=== PATIENT | female | born 1995 | race Caucasian/White ===

== ENCOUNTER 2016-11-23 19:35 | Emergency (ER) | payer SELFPAY ==
[~2016-11-23] VITALS: Ht 170.2 cm; Wt 99.8 kg
[~2016-11-23 19:35] MED LIST: DEPO-PROVE150 MG/1 M IM; NORCO 5-325 TA1 EACH PO; PROZAC20 MG PO
[2016-11-23] MEDS ORDERED: BACTRIM DS TAB1 EACH PO (20:37)
[2016-11-23] MEDS ORDERED: CEPHALEXIN500 MG PO (20:37)
== END 2016-11-23 20:45 | disposition home or self-care (01) ==
LOC: ED 19:35
DX: L03.012 Cellulitis of left finger (principal); F17.200 Nicotine dependence, unspecified, uncomplicated; Z90.49 Acquired absence of other specified parts of digestive tract
CPT/HCPCS: 99283

== ENCOUNTER 2018-05-10 10:31 | Emergency (ER) | payer SELFPAY ==
[~2018-05-10] VITALS: Ht 170.2 cm; Wt 105.2 kg
[~2018-05-10 10:31] MED LIST changes: +BACTRIM DS TAB1 EACH PO; +CEPHALEXIN500 MG PO
[2018-05-10] MEDS ORDERED: AUGMENTIN 875-1 EACH PO (20:02)
== END 2018-05-10 12:38 | disposition left against medical advice (07) ==
LOC: ED 10:31
DX: R05 Cough (principal); R09.81 Nasal congestion; R10.9 Unspecified abdominal pain; R11.0 Nausea; R51 Headache

== ENCOUNTER 2018-05-10 18:27 | Emergency (ER) | payer SELFPAY ==
[~2018-05-10] VITALS: Ht 170.2 cm; Wt 105.2 kg
--- OUTSIDE RECORDS SUMMARY | 2018-05-10 18:30 | XMS ---
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 Lisbeth has no Care Guidelines for this patient. Ricardo [facility] ([facility] MO[facility] NOTE: Visits indicate total known visits. ED/[facility] VISIT TRACKING (12 MO.) 05/10/2018 18:[address] [facility] [place] TYPE: Emergency COMPLAINT: - CHEST PAIN/HEAD PAIN/VISION PROBLEM 05/10/2018 10:32 [facility] [place] TYPE: Emergency COMPLAINT: - FLU SYMPTOMS INPATIENT VISIT TRACKING (12 MO.) No inpatient visits to display in this time frame [id number]
[2018-05-10] MEDS ORDERED: AUGMENTIN 875-1 EACH PO (20:02)
== END 2018-05-10 20:11 | disposition home or self-care (01) ==
LOC: ED 18:27
DX: J32.9 Chronic sinusitis, unspecified (principal); F17.200 Nicotine dependence, unspecified, uncomplicated
CPT/HCPCS: 99283

== ENCOUNTER 2019-01-22 12:17 | Emergency (ER) | payer SELFPAY ==
[~2019-01-22] VITALS: Ht 170.2 cm; Wt 102.1 kg
[~2019-01-22 12:17] MED LIST changes: +AUGMENTIN 875-1 EACH PO
--- OUTSIDE RECORDS SUMMARY | 2019-01-22 12:20 | XMS ---
PreManage Notification: JESÚS ALVARENGA Security Car Dispatcher Events 1 event(s) in the past 18 months Most recent security events: Elopement at [facility] 05/10/2018 10:32 - Other Details: TATA RODRIGUEZ CREATED- PATIENT DID RETURN CRITERIA MET - [facility] - Has Care Guidelines CARE PROVIDERS MICHELLE MYERS Nurse Practitioner: 05/11/2018-Current PHONE: Unknown Lisbeth has no Care Guidelines for this patient. Care History Medical/Surgical 05/11/2018 [facility] - Patient is currently established with [facility]. If patient is seen in the ED during business hours. Please contact CHWs at [facility]. Care Recommendation: This patient has had 5 or more Emergency Department visits in the last 12 months.\T\nbsp; Patient requires education on the scope and purpose of the ED as an acute care provider not a Primary Care Provider and should not be utilized for chronic conditions.\T\nbsp; These are guidelines and the provider should exercise clinical judgment when providing care. E.D. VISIT COUNT (12 MO.) 3 [facility]IE[facility] Boucher ArmidaDarryl TOTAL 3 NOTE: Visits indicate total known visits. ED/UCC VISIT TRACKING (12 MO.) 01/22/2019 12:18 [facility] [place] TYPE: Emergency COMPLAINT: - FLU SYMPTOMS 05/10/2018 18:28 [facility] [place] TYPE: Emergency COMPLAINT: - CHEST PAIN/HEAD PAIN/VISION PROBLEM DIAGNOSES: - Cough - Chronic sinusitis, unspecified - Nicotine dependence, unspecified, uncomplicated 05/10/2018 10:32 [facility] [place] TYPE: Emergency COMPLAINT: - FLU SYMPTOMS DIAGNOSES: - Unspecified abdominal pain - Nausea - Cough - Nasal congestion - Headache INPATIENT VISIT TRACKING (12 MO.) No inpatient visits to display in this time frame [email or web address]
[2019-01-22] MEDS ORDERED: ONDANSETRON ODT8 MG PO (14:45)
== END 2019-01-22 14:55 | disposition home or self-care (01) ==
LOC: ED 12:17
DX: J11.1 Influenza due to unidentified influenza virus with other respiratory manifestations (principal); J40 Bronchitis, not specified as acute or chronic; F17.200 Nicotine dependence, unspecified, uncomplicated
CPT/HCPCS: 71046; 80053; 85025; 87502; 96374; 96375; 99283-25; J1885; J2405; J7030

== ENCOUNTER 2019-07-13 16:06 | Emergency (ER) | payer OTHER ==
[~2019-07-13] VITALS: Ht 170.2 cm; Wt 107.5 kg
[~2019-07-13 16:06] MED LIST changes: +ONDANSETRON ODT8 MG PO
--- OUTSIDE RECORDS SUMMARY | 2019-07-13 16:10 | XMS ---
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 - Has Care Guidelines CARE PROVIDERS MICHELLE MYERS Nurse Practitioner: Family 05/11/2018-Current PHONE: [phone] Lisbeth has no Care Guidelines for this patient. Care History Medical/Surgical 01/24/2019 [facility] Patient needs to re-establish care with PCP Michelle Myers (last seen on 2015) or other PCP. 05/11/2018 [facility] - Patient is currently established with [facility]. If patient is seen in the ED during business hours. Please contact CHWs at [facility]. Care Recommendation: If this patient has had 5 or more Emergency Department visits in the last 12 months.\T\nbsp; Patient will require education on the scope and purpose of the ED as an acute care provider not a Primary Care Provider and should not be utilized for chronic conditions.\T\nbsp; These are guidelines and the provider should exercise clinical judgment when providing care. E.D. VISIT COUNT (12 MO.) 2 DIEGO Mark TOTAL 2 NOTE: Visits indicate total known visits. ED/UCC VISIT TRACKING (12 MO.) 07/13/2019 16:07 [facility] [place] TYPE: Emergency COMPLAINT: - R SIDE MID/LOW BACK PAIN 01/22/2019 12:18 [facility] [place] TYPE: Emergency COMPLAINT: - FLU SYMPTOMS DIAGNOSES: - Nicotine dependence, unspecified, uncomplicated - Bronchitis, not specified as acute or chronic - Fever, unspecified - Influenza due to unidentified influenza virus with other resp INPATIENT VISIT TRACKING (12 MO.) No inpatient visits to display in this time frame [email or web address]
== END 2019-07-13 19:04 | disposition home or self-care (01) ==
LOC: ED 16:06
DX: O99.89 Other specified diseases and conditions complicating pregnancy, childbirth and the puerperium (principal); N13.4 Hydroureter; Z3A.18 18 weeks gestation of pregnancy; O99.332 Smoking (tobacco) complicating pregnancy, second trimester
CPT/HCPCS: 76775; 81001; 99284-25; A9270

== ENCOUNTER 2019-12-06 10:59 | Inpatient (IN) | payer OTHER ==
[~2019-12-06] VITALS: Ht 170.2 cm; Wt 111.1 kg
--- NOTE | 2019-12-08 07:31 | PR ---
[facility] [address] [place], [place] [address] Signed PP Progress Notes Datetime Report Generated by CPN: 12/08/2019 07:30 SUBJECTIVE: [id number] Pain: Within Normal Limits Nausea/Vomiting: Denies Flatus: Yes Bowel Movement: Yes Vital Signs: [id number] Vital Signs: Reviewed; Within Normal Limits EXAM: Ongoing Cardiovascular: Normal Respiratory: Normal Abdomen/Uterus: Normal Lochia: Normal Vulva/Perineum: Normal Extremities: Normal Exam Comments: Appears comfortable Fundus firm below U Trace bilateral lower extremity edema IMPRESSION/PLAN/PROCEDURES: [id number] Impression: Normal Progression Plan: Discharge Progress Notes: PPD#2 s/p MIOL for gHTN, normotensive since delivery Progressing well Signing Physician: Judy Major DO Copies: ~ *Electronically Signed* 12/08/19 0730 JUDY MAJOR DO PATIENT NAME: JESÚS ALVARENGA PROGRESS NOTE DATE OF : [birth year] PHYSICIAN: JUDY MAJOR DO RPT #: [id number] REPORT IS CONFIDENTIAL AND NOT TO BE RELEASED WITHOUT AUTHORIZATION
== END 2019-12-08 09:55 | disposition home or self-care (01) | DRG 807 ==
LOC: FBC 10:59
PROVIDERS: ADMIT Obstetrics & Gynecology; ATTEND Obstetrics & Gynecology
PROC: 10E0XZZ Delivery of Products of Conception, External Approach (ICD-10-PCS; principal; 2019-12-06)
PROC: 0KQM0ZZ Repair Perineum Muscle, Open Approach (ICD-10-PCS; 2019-12-06)
PROC: 0UQMXZZ Repair Vulva, External Approach (ICD-10-PCS; 2019-12-06)
PROC: 10H07YZ Insertion of Other Device into Products of Conception, Via Natural or Artificial Opening (ICD-10-PCS; 2019-12-06)
PROC: 10907ZC Drainage of Amniotic Fluid, Therapeutic from Products of Conception, Via Natural or Artificial Opening (ICD-10-PCS; 2019-12-06)
PROC: 00HU33Z Insertion of Infusion Device into Spinal Canal, Percutaneous Approach (ICD-10-PCS; 2019-12-06)
PROC: 3E0R3BZ Introduction of Anesthetic Agent into Spinal Canal, Percutaneous Approach (ICD-10-PCS; 2019-12-06)
DX: O13.4 Gestational [pregnancy-induced] hypertension without significant proteinuria, complicating childbirth (principal); Z37.0 Single live birth; Z3A.39 39 weeks gestation of pregnancy; O99.334 Smoking (tobacco) complicating childbirth; F17.210 Nicotine dependence, cigarettes, uncomplicated; O99.824 Streptococcus B carrier state complicating childbirth; O70.1 Second degree perineal laceration during delivery; O71.82 Other specified trauma to perineum and vulva
CPT/HCPCS: 01960; 36415; 82565; 82570; 84156; 84450; 84520; 84550; 85025; 85027; A9270; J2405; J2540; J2590; J2795; J3010; J7121

== ENCOUNTER 2020-06-03 21:20 | Emergency (ER) | payer OTHER ==
[~2020-06-03] VITALS: Ht 172.7 cm; Wt 104.3 kg
--- OUTSIDE RECORDS SUMMARY | 2020-06-03 21:22 | XMS ---
PreManage Notification: JESÚS ALVARENGA Security Supervisor Cutting And Boning Events No recent Security Events currently on file CRITERIA MET - [facility] - Has Care Guidelines CARE PROVIDERS HANDY LASSITER Education Sales Consultant 07/14/2019-Current PHONE: Unknown OLIVIER MYRES Nurse Practitioner: Family 05/11/2018-Current PHONE: [phone] Lisbeth has no Care Guidelines for this patient. Care History Medical/Surgical 07/14/2019 [facility] - PATIENT HAS AN APT WITH DR ANTON- 08/09/2019. 01/24/2019 [facility] Patient needs to re-establish care with PCP Olivier Myers (last seen on 2015) or other PCP. 05/11/2018 [facility] - Patient is currently established with [facility]. If patient is seen in the ED during business hours. Please contact CHWs at [facility]. Care Recommendation: If this patient has had 5 or more Emergency Department visits in the last 12 months.\T\nbsp; Patient will require education on the scope and purpose of the ED as an acute care provider not a Primary Care Provider and should not be utilized for chronic conditions.\T\nbsp; These are guidelines and the provider should exercise clinical judgment when providing care. EDarrylD. VISIT COUNT (12 MO.) 2 DIEGO Mark TOTAL 2 NOTE: Visits indicate total known visits. ED/UCC VISIT TRACKING (12 MO.) 06/03/2020 21:21 [facility] [place] TYPE: Emergency COMPLAINT: - ABDOMINAL CRAMPING, FLANK PAIN 07/13/2019 16:07 [facility] [place] TYPE: Emergency COMPLAINT: - R SIDE MID/LOW BACK PAIN DIAGNOSES: - Other specified diseases and conditions complicating , childbirth and the puerperium - Hydroureter - Smoking (tobacco) complicating , second trimester - 18 weeks gestation of INPATIENT VISIT TRACKING (12 MO.) 12/06/2019 11:12 [facility] [place] TYPE: [facility] COMPLAINT: - INDUCTION DIAGNOSES: - Streptococcus B carrier state complicating childbirth - Other specified trauma to perineum and vulva - Single live - Gestational [-induced] hypertension without significant proteinuria, complicating childbirth - Gestational [-induced] hypertension without significant proteinuria, complicating childbirth - Smoking (tobacco) complicating childbirth - Second degree perineal laceration during delivery - Nicotine dependence, cigarettes, uncomplicated - Gestational [-induced] hypertension without significant proteinuria, third trimester - 39 weeks gestation of - Smoking (tobacco) complicating childbirth - Streptococcus B carrier state complicating childbirth - Second degree perineal laceration during delivery - Nicotine dependence, cigarettes, uncomplicated - 39 weeks gestation of - Single live - Other specified trauma to perineum and vulva [email or web address]
[2020-06-03] MEDS ORDERED: CLONIDINE HCL0.2 MG PO (21:36)
[2020-06-03] MEDS ORDERED: ALPRAZOLAM0.25 MG PO (21:36)
[2020-06-03] MEDS ORDERED: FLUOXETINE HCL20 MG PO (21:36)
[2020-06-04] MEDS ORDERED: ZOFRAN4 MG PO (00:17)
[2020-06-04] MEDS ORDERED: HYDROCODON-ACE1 EA10 PO (00:17)
[2020-06-04] MEDS ORDERED: HYDROMORPHONE HC2 MG PO (11:56)
[2020-06-04] MEDS ORDERED: FLOMAX0.4 MG PO (12:36)
== END 2020-06-04 00:33 | disposition home or self-care (01) ==
LOC: ED 21:20
DX: N13.2 Hydronephrosis with renal and ureteral calculous obstruction (principal); F17.200 Nicotine dependence, unspecified, uncomplicated; Z79.899 Other long term (current) drug therapy
CPT/HCPCS: 74176; 80053; 81001; 83690; 84703; 85025; 96374; 99284-25; J1885

== ENCOUNTER 2020-06-04 10:39 | Emergency (ER) | payer OTHER ==
[~2020-06-04] VITALS: Ht 172.7 cm; Wt 104.3 kg
[~2020-06-04 10:39] MED LIST changes: +ALPRAZOLAM0.25 MG PO; +CLONIDINE HCL0.2 MG PO; +FLUOXETINE HCL20 MG PO; +HYDROCODON-ACE1 EA10 PO; +ZOFRAN4 MG PO
--- OUTSIDE RECORDS SUMMARY | 2020-06-04 10:42 | XMS ---
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 Care History Medical/Surgical 07/14/2019 [facility] - PATIENT HAS AN APT WITH DR ANTON- 08/09/2019. 01/24/2019 [facility] Patient needs to re-establish care with PCP Olivier Myers (last seen on 2015) or other PCP. Ricardo VISIT COUNT (12 MO.) 3 [facility] TOTAL 3 NOTE: Visits indicate total known visits. ED/UCC VISIT TRACKING (12 MO.) [facility] COMPLAINT: - R SIDE ABD PAIN 06/03/2020 21:21 [facility] [place] TYPE: Emergency [...] MO.) 12/06/2019 11:12 [facility] [place] TYPE: [facility] COMPLAINT: - INDUCTION DIAGNOSES: - Streptococcus B [...] Other specified trauma to perineum and vulva [email or web address]
[2020-06-04] MEDS ORDERED: HYDROMORPHONE HC2 MG PO (11:56)
[2020-06-04] MEDS ORDERED: FLOMAX0.4 MG PO (12:36)
== END 2020-06-04 13:49 | disposition home or self-care (01) ==
LOC: ED 10:39
DX: N20.1 Calculus of ureter (principal); F17.200 Nicotine dependence, unspecified, uncomplicated; Z79.899 Other long term (current) drug therapy
CPT/HCPCS: 96374; 96375; 99283-25; J1170; J1885

== ENCOUNTER 2020-06-07 05:40 | Day surgery (SDC) | payer OTHER ==
[~2020-06-07] VITALS: Ht 172.7 cm; Wt 103.6 kg
--- NOTE | ~2020-06-07 | OR ---
[facility] [address], [place] [address] Draft DATE OF OPERATION: 06/07/2020 SURGEON: Chato Cantu MD PREOPERATIVE DIAGNOSIS: Right ureterolithiasis. POSTOPERATIVE DIAGNOSES: 1. Right ureterolithiasis. 2. 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 NAMES OF PROCEDURES: 1. Diagnostic cystoscopy with right retrograde pyelogram. 2. Balloon dilation of distal right ureter under fluoroscopic guidance. 3. Right semi-rigid ureteroscopy with laser lithotripsy and basket extraction of stones. 4. Insertion of a 6 x 26 cm double-J ureteral stent into the right ureter. INDICATIONS FOR PROCEDURE: Ms. Alvarenga is a very pleasant 25-year-old female with no previous history of nephrolithiasis, who presented to my clinic two days ago with a 1 to 2 week history of severe right-sided flank pain, nausea, and vomiting. She presented to the emergency department where she underwent a CT scan, which revealed a partially obstructing 7 mm distal right ureteral calculus. Urinalysis at that time revealed no evidence of urinary tract infection and her blood work was within normal limits. She was sent home to attempt a trial of passage, which failed. She is taking p.o. Dilaudid for pain because other narcotics cause severe nausea and vomiting. After discussion of the risks and benefits of the procedure, the patient has elected to undergo extraction of her 7 mm right distal ureteral calculus via ureteroscopy and laser lithotripsy, etc. OPERATIVE FINDINGS: 1. On cystoscopy, there was no evidence of any suspicious masses, lesions, or stones. Bilateral ureteral orifices are in their normal anatomic location. 2. Diagnostic ureteroscopy revealed a mild stricture located in the distal right ureter, approximately 2 cm superior to the right ureteral orifice. My initial attempts to pass a semi-rigid ureteroscope failed due to the presence of the stricture. 3. Right retrograde pyelogram was performed which revealed a filling defect at the distal right ureter, along with narrowing around 2 cm above the right ureteral orifice. 4. The distal right ureter was dilated using a UroMax balloon dilator. The distal stricture was dilated for approximately 2 minutes at a total pressure of 10 ATMs. The repeat ureteroscopy revealed that the balloon dilation was quite successful and I was PATIENT NAME: JESÚS ALVRAENGA OPERATIVE REPORT DATE OF : [birth year] REPORT #: [id number] PHYSICIAN: CHATO CANTU MD PCP: RIVKA ALVARENGA MD REPORT IS CONFIDENTIAL AND NOT TO BE RELEASED WITHOUT AUTHORIZATION [facility] [address], [place] [address] Draft able to easily pass the semi-rigid ureteroscope to the level of the obstructing 7 mm stone. 5. The 7 mm distal right ureteral calculus was fragmented using a holmium laser at 8 and 0.8 settings using a 270 micron fiber. The stone fragmented quite easily to small fragments, most of which passed down the remainder of the ureter and into the bladder. A couple of larger fragments did require extraction using a Zero tip basket. At the end of the procedure, a 6 x 26 cm double-J ureteral stent was inserted into the patient's bladder under direct visualization. DRAINS: A 6 x 26 cm double-J ureteral stent inserted into the right ureter. ESTIMATED BLOOD LOSS: None. COMPLICATIONS: None. DESCRIPTION OF PROCEDURE: After informed consent was obtained, the patient was taken back to the operating room. [facility] operating room table, where general anesthesia was induced. She was placed in the dorsal lithotomy position and her genitalia were prepped and draped in the standard sterile fashion. Using a 30-degree lens on a 22.5-Syrian introducer, a rigid cystoscope was inserted through the urethra and into her bladder under direct visualization. Panendoscopic views of the bladder were then obtained. Please see above findings. Attention was turned to the right ureteral orifice. A cone-tipped catheter was advanced through the bladder into the right ureteral orifice and a right retrograde pyelogram was performed. Please see above findings. A 0.035 Sensor wire was then inserted into the right ureter using a cystoscope in the usual fashion. Fluoroscopy confirmed adequate placement of the wire. I then attempted to pass a semi-rigid ureteroscope alongside the wire and into the right ureteral orifice. I was able to get the camera into the right ureteral orifice, but I could not pass what appeared to be a mild distal ureteral stricture. At that time, I decided to remove the ureteroscope and attempt balloon dilation of the distal ureter. Over the Sensor wire, a UroMax balloon was passed into the distal ureter under fluoroscopic guidance. The balloon was filled with contrast to a pressure of 10 atmospheres for a total of 2 minutes. The balloon was then deflated and the device was removed, leaving the Sensor wire behind. I then attempted another ureteroscopy using a semi-rigid ureteroscope. At this time, I was successful in passing this area of stricture and heading into the proximal portion of the distal right ureter. I encountered the stone there and at that time, the stone was fragmented using a holmium laser at 8 and 0.8 settings. Please see above findings. A good deal of stone fragments PATIENT NAME: JESÚS ALVARENGA OPERATIVE REPORT DATE OF : [birth year] REPORT #: [id number] PHYSICIAN: CHATO CANTU MD PCP: RIVKA ALVARENGA MD REPORT IS CONFIDENTIAL AND NOT TO BE RELEASED WITHOUT AUTHORIZATION [facility] [address], [place] [address] Draft fell out of the ureter and into the patient's bladder. A basket was used to extract a couple of straggling stones present within the distal right ureter. Once I was satisfied that all of these stones had been successfully removed from the right ureter, I removed the semi-rigid ureteroscope from the patient's ureter and bladder. With the remaining Sensor wire already in place, I performed a repeat retrograde pyelogram using a cone-tipped catheter, which confirmed a completely patent right ureter. A 6 x 26 stent cm double-J ureteral stent was then passed into the right collecting system over the indwelling Sensor wire under direct visualization. The stent was passed without any difficulty. Once the wire was pulled, an adequate proximal coil was seen within the right renal pelvis along with an adequate distal coil within the bladder on cystoscopy. The patient's bladder was then drained and the stone fragments were extracted from the patient's bladder using the cystoscope. The procedure was then terminated. The patient tolerated the procedure well without any complication. She will now be transferred to the post anesthesia care unit in stable condition. DISPOSITION: I discussed the details of today's procedure with the patient's and answered all of his questions. She will be sent home today with additional Dilaudid, oral Dilaudid 2 mg p.o. q.6 hours p.r.n. pain, dispense #20, along with Cipro 1 tablet p.o. b.i.d. for a total of 7 days. I notified the patient's that there was some small amount of stricture there in the distal right ureter that require dilation. The dilation was performed without any difficulty. I was successfully able to extract the entire stone burden from the ureter without difficulty. She will be scheduled to return to clinic in two weeks to undergo cystoscopy with right ureteral stent extraction on June 21, 2020. At that time, we will discuss the results of her stone analysis. MD EJ Gonzalez/MODL /[id number] Copies: ~ PATIENT NAME: JESÚS ALVARENGA OPERATIVE REPORT DATE OF : [birth year] REPORT #: [id number] PHYSICIAN: CHATO CANTU MD PCP: RIVKA ALVARENGA MD REPORT IS CONFIDENTIAL AND NOT TO BE RELEASED WITHOUT AUTHORIZATION
[~2020-06-07 05:40] MED LIST changes: +FLOMAX0.4 MG PO; +HYDROMORPHONE HC2 MG PO
--- NOTE | 2020-06-07 08:48 | NUR ---
06/07/20 0848 Meredith Pagan 0837 PT TO PACU WITH ORAL AIRWAY IN PLACE O2 AT 6L VIA MASK BUILDING CARPENTER REMOVED ORAL AIRWAY ON ADMIT TO PACU.
--- NOTE | 2020-06-07 09:27 | NUR ---
LE 0900: PT RETURNS TO UNIT FROM PACU VIA STRETCHER. BEDSIDE REPORT RECEIVED AND CARE ASSUMED BY THIS RN. PT ALERT AND ORIENTED. DENIES NAUSEA, VSS. REPORTS URGENCY TO VOID. DANGLES AT THE BEDSIDE AND DENIES DIZZINESS AND SOB. PIVOTS TO BEDSIDE COMMODE WITH STANDBY ASSIST FROM THIS RN. SUCCESSFUL POST OP VOID. PIVOTS BACK TO BED. IMELDA WELL. SNACKS AND ICE WATER PROVIDED. DENIES FURTHER NEEDS AND REQUESTS. CALL LIGHT WITHIN REACH
--- NOTE | 2020-06-07 10:04 | NUR ---
PT ALERT AND ORIENTED ON CELL PHONE. VSS, PT CONTS TO DENY PAIN AND NAUSE. IV D/C'D WITH CATH TIP INTACT AND PRESSURE APPLIED TO SITE. SCDS REMOVED AND PT TO PREPARE FOR D/C.
--- NOTE | 2020-06-07 10:30 | NUR ---
1025: D/C INSTRUCTIONS PROVIDED AND DISCUSSED ORDERED. PT VOICES UNDERSTANDING AND DENIES QUESTIONS OR CONCERNS AT THIS TIME. WHEELED OFF OF UNIT IN W/C. TRANSFERS INTO VEHICLE INDEPENDENTLY. RESP EVEN AND UNLABORED. NO PHYSICAL S/S OF DISTRESS AT THIS TIME
== END 2020-06-07 10:25 | disposition home or self-care (01) ==
LOC: OPS 05:40 → DS 05:40 → OPS 06:45
PROVIDERS: ATTEND Urology
PROC: 0T768DZ Dilation of Right Ureter with Intraluminal Device, Via Natural or Artificial Opening Endoscopic (ICD-10-PCS; 2020-06-07)
PROC: 0T768ZZ Dilation of Right Ureter, Via Natural or Artificial Opening Endoscopic (ICD-10-PCS; 2020-06-07)
PROC: 0TC68ZZ Extirpation of Matter from Right Ureter, Via Natural or Artificial Opening Endoscopic (ICD-10-PCS; principal; 2020-06-07 06:45)
DX: N20.1 Calculus of ureter (principal); F17.210 Nicotine dependence, cigarettes, uncomplicated; N39.0 Urinary tract infection, site not specified; N13.5 Crossing vessel and stricture of ureter without hydronephrosis; Z88.5 Allergy status to narcotic agent
CPT/HCPCS: 74018; 74420; 82365; 84703; C1769; C2617; J0690; J1100; J1200; J1885; J2001; J2250; J2405; J2704; J3010; J7121; Q9967

== ENCOUNTER 2020-11-24 06:52 | Emergency (ER) | payer OTHER ==
[~2020-11-24] VITALS: Ht 172.7 cm; Wt 103.4 kg
--- OUTSIDE RECORDS SUMMARY | 2020-11-24 06:54 | XMS ---
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 Care History Medical/Surgical 06/05/2020 [facility] - PATIENT HAS A URETEROSCOPY SCHEDULED WITH UROLOGIST DR CANTU 06/07/2020. 07/14/2019 [facility] - PATIENT HAS AN APT WITH DR ANTON- 08/09/2019. 01/24/2019 [facility] Patient needs to re-establish care with PCP Olivier Myers (last seen on 2015) or other PCP. Ricardo VISIT COUNT (12 MO.) 3 [facility] TOTAL 3 NOTE: Visits indicate total known visits. ED/UCC VISIT TRACKING (12 MO.) [facility] COMPLAINT: - DENTAL PAIN 06/04/2020 10:40 [facility] [place] TYPE: Emergency COMPLAINT: - R SIDE ABD PAIN DIAGNOSES: - Other alf (current) drug therapy - Unspecified abdominal pain - Nicotine dependence, unspecified, uncomplicated - Calculus of ureter 06/03/2020 21:21 [facility] [place] TYPE: Emergency COMPLAINT: - ABDOMINAL CRAMPING, FLANK PAIN DIAGNOSES: - Other alf (current) drug therapy - Nicotine dependence, unspecified, uncomplicated - Hydronephrosis with renal and ureteral calculous obstruction - Generalized abdominal pain INPATIENT VISIT TRACKING (12 MO.) 12/06/2019 11:12 DIE[facility]ano [place] TYPE: [facility] COMPLAINT: - INDUCTION DIAGNOSES: - Streptococcus [...] Other specified trauma to perineum and vulva [email or web address]
[2020-11-24] MEDS ORDERED: ARIPIPRAZOLE2 MG PO (07:05)
[2020-11-24] MEDS ORDERED: HYDROCODON-ACE1 EA10 PO (07:05)
[2020-11-24] MEDS ORDERED: DILAUDID2 MG PO (07:58)
[2020-11-24] MEDS ORDERED: AMOXICILLIN500 MG PO (07:58)
== END 2020-11-24 08:15 | disposition home or self-care (01) ==
LOC: ED 06:52
DX: K08.89 Other specified disorders of teeth and supporting structures (principal); F17.200 Nicotine dependence, unspecified, uncomplicated; Z88.5 Allergy status to narcotic agent; Z79.899 Other long term (current) drug therapy
CPT/HCPCS: 99282

== ENCOUNTER 2021-10-11 19:58 | Inpatient (IN) | payer OTHER ==
[~2021-10-11] VITALS: Ht 172.7 cm; Wt 113.4 kg
[~2021-10-11 19:58] MED LIST changes: +AMOXICILLIN500 MG PO; +ARIPIPRAZOLE2 MG PO; +DILAUDID2 MG PO
--- NOTE | 2021-10-11 21:55 | NUR ---
COVID 19 SWAB DONE TO BOTH NARES AND SENT TO IN HOUSE LAB.
[2021-10-11] MEDS ORDERED: PRENATAL FORMU1 EAC3 PO (22:17)
[2021-10-11] MEDS ORDERED: IRON325 M1 PO (22:17)
[2021-10-11] MEDS ORDERED: LO-DOSE ASPIRIN81 MG PO (22:18)
--- NOTE | 2021-10-12 01:29 | PR ---
[facility] [address] [place], [place] [address] Signed Progress Notes IP Datetime Report Generated by NIKKI: 10/12/2021 01:29 PROGRESS NOTES: [id number] Impression: Normal Progression of Labor; Reassuring Heart Rate Procedures: Artificial ROM; Sterile Vag Exam Plan: Continue Present Management VITAL SIGNS: [id number] Vital Signs: Reviewed; Within Normal Limits EXAM: [id number] Dilatation: 5.0 Effacement: 80 Station: -2 Contractions: q 5 to 7 min MEMBRANES: [id number] Amniotic Fluid Color: Clear Comments: Comfortable after epidural. AROM of forebag should help with contractions. If not, will begin with low dose pitocin. FETUS A: [id number] FHR Baseline: 145 Variability: Moderate 6-25bpm Accelerations: 15X15 Decelerations: None FHR Category: Category I Presentation: Vertex Comments on Fetus A: no evidence metabolic acidosis FETUS B: [id number] Signing Physician: Linda Silvermna MD Copies: ~ *Electronically Signed* 10/12/21 0129 LINDA SILVERMAN MD PATIENT NAME: JESÚS ALVARENGA PROGRESS NOTE DATE OF : 95 PHYSICIAN: LINDA SILVERMAN MD RPT #: [id number] REPORT IS CONFIDENTIAL AND NOT TO BE RELEASED WITHOUT AUTHORIZATION
--- NOTE | 2021-10-12 04:46 | PR ---
[facility] [address] [place], [place] [address] Signed PP Progress Notes Datetime Report Generated by NIKKI: 10/12/2021 04:46 SUBJECTIVE: [id number] Vital Signs: [id number] EXAM: Ongoing Exam Comments: Fundus firm, sl tender at U-2 Small clot removed from uterus IMPRESSION/PLAN/PROCEDURES: [id number] Other Impression: pp bleeding, hx pp hemorrhage Other Plans: add po Cytotec, Lomotil, Zofran IV Progress Notes: Having some increased bleeding following delivery. She has previously received TXA and has had pitocin bolus and ongoing infusion of pit at 250 cc/hr. Small clot removed but pt with trickle of bleeding. Will add PO Cytotec, Lomotil, IV Zofran to see if this is helpful. Her BPs are sl elevated and am reluctant to use methergine. Hemabate will be next option for treatment. Signing Physician: Linda Silverman MD Copies: ~ *Electronically Signed* 10/12/21 0446 LINDA SILVERMAN MD PATIENT NAME: JESÚS ALVARENGA PROGRESS NOTE DATE OF : [birth year] PHYSICIAN: LINDA SILVERMAN MD RPT #: [id number] REPORT IS CONFIDENTIAL AND NOT TO BE RELEASED WITHOUT AUTHORIZATION
--- NOTE | 2021-10-13 09:28 | PR ---
[facility] [address], [place] [address] Signed PP Progress Notes Datetime Report Generated by NIKKI: 10/13/2021 09:28 SUBJECTIVE: [id number] Pain: Within Normal Limits Pain Comments: no dizziness when up and around Vital Signs: [id number] Vital Signs: Reviewed; Within Normal Limits EXAM: Ongoing Cardiovascular: Not Done Respiratory: Not Done Abdomen/Uterus: Abnormal Lochia: Normal Vulva/Perineum: Not Done Breasts: Not Done CVA Tenderness: Not Done Extremities: Normal Incision: Not Applicable Progress: Normal Exam Comments: Fundus firm, NT @ U-2 H/H 6.8/22.5, WBC 9, plat 250k IMPRESSION/PLAN/PROCEDURES: [id number] Impression: Normal Progression Other Impression: Anemia worsened with delivery Plan: Discharge Other Plans: add po Cytotec, Lomotil, Zofran IV Other Procedures: IV iron infusion Progress Notes: Feeling well and tolerating ambulation w/o difficulty despite anemia. I do not feel transfusion necessary as she is doing well but will give IV iron infusion today with repeat in 5 to 7 days. Signing Physician: Linda Silverman MD Copies: ~ *Electronically Signed* 10/13/21927 LINDA SILVERMAN MD PATIENT NAME: JESÚS ALVARENGA PROGRESS NOTE DATE OF : 89 PHYSICIAN: LINDA SILVERMAN MD RPT #: [id number] REPORT IS CONFIDENTIAL AND NOT TO BE RELEASED WITHOUT AUTHORIZATION
== END 2021-10-13 12:02 | disposition home or self-care (01) | DRG 806 ==
LOC: FBCO 19:58 → FBC 20:28
PROVIDERS: ADMIT Obstetrics & Gynecology; ATTEND Obstetrics & Gynecology
PROC: 10E0XZZ Delivery of Products of Conception, External Approach (ICD-10-PCS; principal; 2021-10-12)
PROC: 10907ZC Drainage of Amniotic Fluid, Therapeutic from Products of Conception, Via Natural or Artificial Opening (ICD-10-PCS; 2021-10-12)
PROC: 3E0R3BZ Introduction of Anesthetic Agent into Spinal Canal, Percutaneous Approach (ICD-10-PCS; 2021-10-12)
PROC: 00HU33Z Insertion of Infusion Device into Spinal Canal, Percutaneous Approach (ICD-10-PCS; 2021-10-12)
PROC: 3E033VJ Introduction of Other Hormone into Peripheral Vein, Percutaneous Approach (ICD-10-PCS; 2021-10-12)
PROC: 0KQM0ZZ Repair Perineum Muscle, Open Approach (ICD-10-PCS; 2021-10-12)
DX: O42.02 Full-term premature rupture of membranes, onset of labor within 24 hours of rupture (principal); O72.1 Other immediate postpartum hemorrhage; Z37.0 Single live birth; O13.4 Gestational [pregnancy-induced] hypertension without significant proteinuria, complicating childbirth; Z20.822 Contact with and (suspected) exposure to COVID-19; O76 Abnormality in fetal heart rate and rhythm complicating labor and delivery; O99.02 Anemia complicating childbirth; Z88.5 Allergy status to narcotic agent; O99.334 Smoking (tobacco) complicating childbirth; F17.210 Nicotine dependence, cigarettes, uncomplicated; Z3A.38 38 weeks gestation of pregnancy; O70.1 Second degree perineal laceration during delivery; O99.824 Streptococcus B carrier state complicating childbirth; Z79.899 Other long term (current) drug therapy; Z90.49 Acquired absence of other specified parts of digestive tract
CPT/HCPCS: 01960; 36415; 85025; 85027; 85060; 86850; 86900; 86901; 87502; A9270; C9803; J2001; J2405; J2540; J2590; J2795; J7121; Q0138; U0003

== ENCOUNTER 2021-10-19 13:53 | Emergency (ER) | payer OTHER ==
[~2021-10-19] VITALS: Ht 182.9 cm; Wt 103.8 kg
[~2021-10-19 13:53] MED LIST changes: +IRON325 M1 PO; +LO-DOSE ASPIRIN81 MG PO; +PRENATAL FORMU1 EAC3 PO
--- OUTSIDE RECORDS SUMMARY | 2021-10-19 13:56 | XMS ---
PreManage Notification: JESÚS ALVARENGA [facility] Nurse Events No recent Security Events currently on file CRITERIA MET - [facility] CARE PROVIDERS HANDY LASSITER [facility] 07/14/2019-Current PHONE: Unknown OLIVIER MYERS Nurse Practitioner: Family 05/11/2018-Current PHONE: Unknown L[facility] 06/04/2020-Current PHONE: [phone] Lisbeth has no Care Guidelines for this patient. Care History Medical/Surgical 06/05/2020 [facility] - PATIENT HAS A URETEROSCOPY SCHEDULED WITH UROLOGIST DR CANTU 06/07/2020. 07/14/2019 [facility] - PATIENT HAS AN APT WITH DR ANTON- 08/09/2019. 01/24/2019 [facility] Patient needs to re-establish care with PCP Olivier Myers (last seen on 2015) or other PCP. Ricardo VISIT COUNT (12 MO.) 2 [facility] TOTAL 2 NOTE: Visits indicate total known visits. ED/UCC VISIT TRACKING (12 MO.) 10/19/2021 13:53 [facility] TYPE: Emergency COMPLAINT: - L LOWER BACK PAIN 11/24/2020 06:52 [facility] TYPE: Emergency COMPLAINT: - DENTAL PAIN DIAGNOSES: - Other intermediate (current) drug therapy - Nicotine dependence, unspecified, uncomplicated - Jaw pain - Allergy status to narcotic agent - Other specified disorders of teeth and supporting structures INPATIENT VISIT TRACKING (12 MO.) 10/11/2021 20:28 [facility] TYPE: [facility] COMPLAINT: - LABOR DIAGNOSES: - Other intermediate (current) drug therapy - Nicotine dependence, cigarettes, uncomplicated - Other intermediate (current) drug therapy - Anemia complicating childbirth - Gestational [-induced] hypertension without significant proteinuria, complicating childbirth - Anemia complicating childbirth - Smoking (tobacco) complicating childbirth - Streptococcus B carrier state complicating childbirth - Allergy status to narcotic agent - Nicotine dependence, cigarettes, uncomplicated - Acquired absence of other specified parts of digestive tract - 38 weeks gestation of - Streptococcus B carrier state complicating childbirth - Other immediate hemorrhage - Allergy status to narcotic agent - Single live - Second degree perineal laceration during delivery - Full-term premature rupture of membranes, onset of labor within 24 hours of rupture - Acquired absence of other specified parts of digestive tract - Other immediate hemorrhage - Smoking (tobacco) complicating childbirth - Contact with and (suspected) exposure to COVID-19 - Gestational [-induced] hypertension without significant proteinuria, complicating childbirth - Second degree perineal laceration during delivery - Abnormality in heart rate and rhythm complicating labor and delivery - Single live - 38 weeks gestation of - Contact with and (suspected) exposure to COVID-19 - Abnormality in heart rate and rhythm complicating labor and delivery [email or web address]
[2021-10-19] MEDS ORDERED: ONDANSETRON ODT8 MG PO (18:25)
[2021-10-19] MEDS ORDERED: CEPHALEXIN500 M1 PO (18:25)
== END 2021-10-19 19:25 | disposition home or self-care (01) ==
LOC: ED 13:53
DX: O86.20 Urinary tract infection following delivery, unspecified (principal); N39.0 Urinary tract infection, site not specified; O99.345 Other mental disorders complicating the puerperium; F53.0 Postpartum depression; O99.335 Smoking (tobacco) complicating the puerperium; F17.200 Nicotine dependence, unspecified, uncomplicated; Z88.5 Allergy status to narcotic agent
CPT/HCPCS: 36415; 74176; 80053; 81001; 84703; 85025; 85060; 96375; 99284-25; A9270; J0696; J1885